=== PATIENT | female | born 1975 | race Native Hawaiian/Other Pacific Islander ===

== ENCOUNTER 2021-03-06 08:16 | Day surgery (SDC) | payer OTHER ==
[~2021-03-06 08:16] MED LIST: METOPROLOL 5 MG/5 ML VIAL ONE
[2021-03-06] MEDS ORDERED: fentaNYL citrate 0.05 MG/ML VIAL ONE (11:03)
[2021-03-06] MEDS ORDERED: MIDAZOLAM 5 MG/5 ML VIAL ONE (11:03)
[2021-03-06] MEDS ORDERED: LIDOCAINE 2% 100 MG/5 ML UJET TP ONE ×2 (11:04→11:20)
[2021-03-06] MEDS ORDERED: MIDAZOLAM 2 MG/2 ML VIAL IVP ONE (11:20)
[2021-03-06] MEDS ORDERED: fentaNYL citrate 0.05 MG/ML VIAL IVP ONE (11:20)
== END 2021-03-06 12:16 | disposition home or self-care (01) ==
LOC: MDS 08:16 → MFCC 08:18 → MDS 12:16
PROVIDERS: ATTEND Internal Medicine Gastroenterology
DX: Z12.11 Encounter for screening for malignant neoplasm of colon (principal); K57.30 Diverticulosis of large intestine without perforation or abscess without bleeding; Z80.0 Family history of malignant neoplasm of digestive organs; K30 Functional dyspepsia; K21.9 Gastro-esophageal reflux disease without esophagitis; Z79.899 Other long term (current) drug therapy
CPT/HCPCS: 45378; 81025; J2250; J3010; J3490